=== PATIENT | female | born 2000 | race Caucasian/White ===

== ENCOUNTER 2022-10-09 19:00 | Inpatient (IN) | payer SELFPAY ==
[2022-10-09] VITALS (26 sets, daily range): BP systolic 99–132; BP diastolic 60–85; PULSE 73–108; TEMP 36.8–37.1; O2SAT 75–100; BMI 35.0
[2022-10-09] MEDS: Lactated Ringers 1,000 ML 50 ML IV (19:50)
[2022-10-09] MEDS: 0.9% Normal Saline Single 100 ML IV.SOLN. INTRA-UTER (19:50)
--- NOTE | 2022-10-09 19:50 | PCM.HP.OB ---
HPI - General General Date of Admission: 10/09/22 HPI Narrative SANTOS FARMER, is a 21 F who presents at 39w6d for elective induction of labor. Maternal Data Information EMERALD Calculator Estimated Delivery Date Method Current WG Current Estimate 10/10/22 Manual 39w 6d NST FHR Rate Baby A Baseline: 125 Variability:: Moderate Accelerations:: 15 x 15 Decelerations:: None FHR Category:: Category I Uterine Activity:: None ROS Constitutional Constitutional: Reports systems reviewed and no addt'l complaints, except as documented; Denies headache(s) Eyes Eyes: Denies acute decrease in peripheral vision, blurry vision or change in vision ENT HEENT: Reports systems reviewed and no addt'l complaints, except as documented Cardiovascular Cardiovascular: Denies chest pain or dizziness Respiratory/Chest Respiratory/Chest: Denies cough, dyspnea, dyspnea on exertion, shortness of breath at rest or shortness of breath with exertion Gastrointestinal Gastrointestinal: Denies abdominal pain, diarrhea, nausea or vomiting Genitourinary Genitourinary: Denies abdominal discomfort Musculoskeletal Musculoskeletal: Denies limited range of motion Integumentary Integumentary: Reports systems reviewed and no addt'l complaints, except as documented Neurologic Neurologic: Reports systems reviewed and no addt'l complaints, except as documented Psychiatric Psychiatric: Reports systems reviewed and no addt'l complaints, except as documented Endocrine Endocrinology: Reports systems reviewed and no addt'l complaints, except as documented Hematologic/Lymphatic Hematologic/Lymphatic: Reports systems reviewed and no addt'l complaints, except as documented Allergic/Immunologic Allergic/Immunologic: Reports systems reviewed and no addt'l complaints, except as documented Vital Signs Vital Signs Vital Signs: Weight Weight: 210 lb 8 oz Body Mass Index (BMI) 35.0 Physical Exam Const alert and oriented x3 General Appearance: cooperative Orientation / Consciousness: awake, oriented to person, oriented to place and oriented to time Exam Limitations: no limitations HEENT normocephalic Head and Scalp: normal to inspection, normocephalic and atraumatic Face and Sinus: normal facial exam Eyes General Eye: normal appearance of both eyes Neck full ROM Chest Chest: symmetrical chest wall rise Resp normal respiratory effort and normal air movement Auscultation: clear to auscultation bilaterally Cardio regular rate, regular rhythm, S1 normal heart sound, S2 normal heart sound, no murmurs, no rub, no gallops and no clicks GI normal to inspection, nondistended, normoactive bowel sounds and non-tender appearance of the vagina normal Bladder / Kidney Exam: no CVA tenderness Manual OB Exam: estimated gestational size appropriate, presentation cephalic, dilated 2cm, effaced 50%, station -3 and other tapia catheter inserted through cervix without difficulty. 30ml NS instilled. AROM during insertion. Patient tolerated well. Amniotic Fluid: meconium-stained Back/Spine normal ROM Extremity normal to inspection and full ROM Skin no rashes or lesions noted Neuro oriented x3, CN's II-XII intact bilaterally and moves all extremities Sensorium / Orientation: awake, alert and oriented to person Motor Exam: clonus absent Deep Tendon Reflexes: Rt Patellar (L4): 2+ and Lt Patellar (L4): 2+ Labs Labs Labs: No Data to Display RPR negative GC/CT negative Rubella immune HBsAG negative HIV negative HepC negative A positive Assessment & Plan (1) Encounter for induction of labor: (2) Elective induction of labor planned: (3) Obesity affecting : PLAN: Plan 1) Admit to labor and delivery 2) Routine labs 3) GBS negative 4) Continuous EFM 5) Tapia with PO cytotec for cervical ripening and then pitocin per protocol 6) Epidural for pain management upon request 7) collaborative physician and notified of patient status and induction of labor.
[2022-10-09 20:07] LABS: Absolute Neutrophil Count 8.4 X10^3/uL (2.0-7.7); Basophil# 0.03 X10^3/uL; Basophil% 0.3 % (0-1); Eosinophil# 0.03 X10^3/uL; Eosinophils% 0.3 % (0-5); Hematocrit 36.9 % (37-47); Hemoglobin 12.2 g/dL (12.0-15.0); Lymphocyte % 18.5 % (19-41); Mean Corp Hgb Conc 33.1 g/dL (32-36); Mean Corpuscular Hgb 27.8 pg (27.0-32.0); Mean Corpuscular Volume 84.1 fL (81-99); Mean Platelet Vol. 11.5 fl (6.2-12.0); Monocyte# 0.74 X10^3/uL; Monocyte% 6.5 % (0-10); NRBC Flagged by Analyzer 0 % (0-5); Neutrophil # 8.42 X10^3/uL (2.7-7.7); Platelet Count 182 K/mm3 (150-450); RBC Distribution Width CV 13.5 % (11.6-14.6); RBC Distribution Width SD 41.4 fl (35.1-43.9); Red Blood Count 4.39 M/mm3 (4.2-5.4); White Blood Count 11.4 K/mm3 (4.4-11.0)
[2022-10-09 20:48] LABS: Syphilis Antibodies Non-reactive
[2022-10-09] MEDS: Oxytocin 15 Units/NS 250ml 15 UNITS/250 ML IV.SOLN 2 UNITS IV (22:07)
[2022-10-09] MEDS: LACTATED RINGERS 500 ML 999 ML IV ×2 (22:10→23:51)
[2022-10-09] MEDS: fentaNYL-bupivacaine (epidural) 100 ML BAG EPIDURAL (23:06)
[2022-10-10] VITALS (203 sets, daily range): BP systolic 87–132; BP diastolic 47–77; PULSE 68–180; RESP 14–16; TEMP 36.1–37.2; O2SAT 82–100
[2022-10-10] MEDS: Lactated Ringers 1,000 ML 50 ML IV (00:38)
[2022-10-10] MEDS: Cefazolin 2 GM in 0.9% Normal Saline 100 ML IV (03:42)
--- NOTE | 2022-10-10 04:48 | EX.PCM.OBRPT ---
Maternal Data Information EMERALD Calculator Estimated Delivery Date Method Current WG Current Estimate 10/10/22 Manual 40w 0d Final EMERALD: 10/10/22 Gestational age: 40 weeks Details Operative Information Date of Procedure: 10/10/22 Pre-Operative Diagnosis: (1) Inability of fetus to tolerate labor Post-Operative Diagnosis: Same Indications for : Nonreassuring Status Indications Narrative: The patient was taken to the operating room where epidural anesthesia was dosed & found to be adequate. She was prepped and draped in the dorsal supine position with a leftward tilt. A Pfannenstiel skin incision was made approximately 2 cm above the symphysis pubis and carried through to the underlying fascia with the scalpel. The fascia was incised incised in the midline and extended laterally with the Carlos scissors. The rectus muscles were in the midline and the peritoneum was entered carefully and bluntly. The peritoneal incision was stretched and the bladder blade was inserted. Vesicouterine peritoneum was tented up, incised & then bladder flap created gently. The uterine incision was made in a low transverse fashion with the scalpel and extended superiorly and inferiorly with blunt dissection. The 's head was brought to the incision in the flexed position and delivered without difficulty. The head was gently guided to allow delivery of the anterior and posterior shoulders. The body then delivered with fundal pressure in the standard fashion. The 3VC cord was clamped and cut in slightly delayed fashion. The infant was handed off to the waiting pediatric dental hygienist. The placenta was delivered with fundal massage and gentle traction in the standard fashion. The uterus was exteriorized and cleared of clots and debris. The uterine incision was closed with #1 Vicryl suture in a running locked fashion. Monocryl suture was used in an imbricating fashion. The incision was examined and was found to be hemostatic. The uterus was returned to the abdominal cavity. After irrigating Cadence was placed over the uterine incision as some areas were denuded (but hemostatic). The rectus muscle was examined and any bleeding was Bovie cauterized. The fascia was closed with PDS suture in a running standard fashion. The subcutaneous tissue was examining and any bleeding was Bovie cauterized. The subcutaneous tissue was reapproximated with interrupted sutures. The skin was closed in a subcuticular fashion by the MANAGEMENT INTERN while I was present in the labor & delivery unit. The remainder of the procedure was performed by me with assistance. All sponge, lap, and needle counts were correct. The patient was taken to her room for recovery in a stable condition. Classification: JEREMIAH Procedure Type: low transverse compensation analyst #1: Angie Davila Type of Anesthesia: Epidural Antibiotic Given: Ancef 2 grams IV x1 and Zithromax 500 mg/5 mL X1 Drain: Day to straight drain Estimated Blood Loss: 700 Fluids Replaced: 1500 Procedure Start Time: 04:07 Procedure Stop Time: 04:48 Findings Description of Procedure: Normal maternal uterus and adnexa Presentation: Positive for Vertex Amniotic Membrane Rupture Type: Artificial Amniotic Fluid Description: Clear Placental Delivery Description: Expressed Placenta Disposition: [facility] Specimen(s) Sent to Pathology: none Cord Vessel Description: 3 Vessels Cord Entanglement: None A Gender: Male (weight = 7-2, Jose Eduardo) (1 minute): 8 (5 minute): 9 Delayed Cord Clamping: Yes Complications Complications: None
[2022-10-10] MEDS: Oxytocin 15 Units/NS 250ml 15 UNITS/250 ML IV.SOLN 83 UNITS IV (05:35)
[2022-10-10] MEDS: Acetaminophen 500 MG Tablet 1000 MG PO ×4 (06:56→23:20)
[2022-10-10] MEDS: Ketorolac 30 MG/ML Syringe IV ×4 (06:56→23:20)
[2022-10-10] MEDS: Lactated Ringers 1,000 ML 100 ML IV (10:00)
--- NOTE | 2022-10-10 15:37 | NURSING ---
Pt head of cytogenetics MIRIAM. Pt requesting to rest and legs were numb for an extended period of time.
[2022-10-10] MEDS: 0.9% Saline Lock 10 ML Syringe IV (17:41)
[2022-10-10] MEDS: Enoxaparin 40 MG/0.4 ML Syringe SC (17:48)
[2022-10-11] VITALS (54 sets, daily range): BP systolic 110–122; BP diastolic 73–78; PULSE 71–110; RESP 15–18; TEMP 36.2–36.7; O2SAT 97–100
[2022-10-11 04:44] LABS: Hematocrit 33.7 % (37-47); Hemoglobin 11.3 g/dL (12.0-15.0); Mean Corp Hgb Conc 33.5 g/dL (32-36); Mean Corpuscular Hgb 28.3 pg (27.0-32.0); Mean Corpuscular Volume 84.5 fL (81-99); Mean Platelet Vol. 10.9 fl (6.2-12.0); Platelet Count 143 K/mm3 (150-450); RBC Distribution Width CV 14.1 % (11.6-14.6); RBC Distribution Width SD 43.2 fl (35.1-43.9); Red Blood Count 3.99 M/mm3 (4.2-5.4); White Blood Count 15.2 K/mm3 (4.4-11.0)
[2022-10-11] MEDS: Ibuprofen 600 MG Tablet PO ×2 (06:02→15:24)
[2022-10-11] MEDS: Acetaminophen 500 MG Tablet 1000 MG PO ×2 (06:02→15:23)
--- NOTE | 2022-10-11 08:11 | PCM.PN.OB ---
Subjective Subjective Doing well. Pain is well controlled. She is ambulating and voiding without difficulty. Tolerating regular diet without nausea or vomiting. Lochia is normal. She denies lightheadedness or dizziness. Denies leg pain. Desires to go home. Objective Data Objective Data Vital Signs: Vital Signs Temp Pulse Resp BP Pulse Ox O2 Del Method 97.1 F L 95 15 110/73 99 Room Air 10/11/22 04:00 10/11/22 04:00 10/11/22 04:00 10/11/22 04:00 10/11/22 04:00 10/11/22 04:00 Oxygen Delivery Method Room Air Weight: 210 lb 8 oz Body Mass Index (BMI) 35.0 Intake & Output: Intake and Output for Last 24 Hours 10/09/22 10/10/22 10/11/22 23:59 23:59 23:59 Intake Total 500 / 500 2925.83 / 2925.83 Output Total 3100 / 3100 Balance 500 / 500 -174.17 / -174.17 Lab / Micro Data Result Diagrams: 10/11/22 04:30 Labs: Laboratory Results - last 24 hr 10/11/22 04:30: WBC 15.2 H, RBC 3.99 L, Hgb 11.3 L, Hct 33.7 L, MCV 84.5, MCH 28.3, MCHC 33.5, RDW Std Deviation 43.2, RDW Coeff of Emmanuel 14.1, Plt Count 143 L, MPV 10.9 Physical Exam Const alert and no apparent distress General Appearance: comfortable HEENT normocephalic Assessment & Plan (1) Delivery by section: PLAN: Patient is postoperative day 1 from a section. She is doing well and desires discharge home. Meeting milestones for discharge. Discharge instructions were reviewed with the patient and she will follow-up in the office in 1 to 2 weeks for an incision check.
--- NOTE | 2022-10-11 08:15 | DCINST_ITS ---
Discharge Instructions Diet Discharge Diet: No restrictions Activity Discharge Activity: May Not Drive and May Shower May resume sexual activity in: 6 weeks Weight Bearing Status: Weight bearing as tolerated Lifting Restrictions: Nothing heavier than baby Dressing / Incision Call your doctor if your incision/area has: Continuous Slow Oozing, Sudden Incre ased Bleeding, Increased Pain/ Swelling, Increased Redness, Foul Smelling Discharge and Swelling at the incision site Call your doctor if you observe: Fever of 101 or Higher, Coldness, Increased Pain, Numbness or Tingling, Change in Color, Inability to urinate, Inability to have a bowel movement, Using more than 1 pad per hour, Shortness of breath, Dizziness, Fainting spells, Swelling in the ankles, Chest pain, Increased palpitations (irregular heartbeat), Calf discomfort and Uncontrolled pain Suture Line Care: Avoid Pulling/Pushing and Avoid Pinching/Bending Remove Dressing in: 2 days Cleanse incision/area with: Soap & Water Follow Up Care When: 1-2 weeks for incision check Test Results: Test results from this visit will be discussed in further detail at your follow- up appointment, if applicable. Discharge Plan Admission Admit Date/Time: 10/09/22 19:00 Primary Reason for Your Visit: delivery Attending Provider: Jeannine Green Primary Care Provider: Morenita Mayer Primary Instructions Patient Instructions: Section Dc Discharge Orders/Prescriptions Prescriptions: New oxycodone-acetaminophen [Percocet] 5-325 mg tablet 1 tab PO Q6H PRN (Reason: pain) 7 Days Qty: 10 0RF ibuprofen 600 mg tablet 600 mg PO Q6H PRN (Reason: pain) Qty: 30 0RF docusate sodium [Colace] 100 mg capsule 100 mg PO BID Qty: 30 0RF Referrals / Follow Up: Care PhysicianMorenita Primary [Primary Care Provider] - Disposition Disposition (needs filled in before D/C Order can be placed): Home, Self Care
--- NOTE | 2022-10-11 08:22 | PCM.PN.OB ---
Subjective Subjective Patient is doing well. Her pain is well controlled. She is ambulating and voiding without difficulty. Lochia is normal. She is tolerating regular diet without nausea or vomiting. She denies lightheadedness or dizziness. She denies leg pain. She desires to go home today. Objective Data Objective Data Vital Signs: Vital Signs Temp Pulse Resp BP Pulse Ox O2 Del Method 97.1 F L 95 15 110/73 99 Room Air 10/11/22 04:00 10/11/22 04:00 10/11/22 04:00 10/11/22 04:00 10/11/22 04:00 10/11/22 04:00 Oxygen Delivery Method Room Air Weight: 210 lb 8 oz Body Mass Index (BMI) 35.0 Intake & Output: Intake and Output for Last 24 Hours 10/09/22 10/10/22 10/11/22 23:59 23:59 23:59 Intake Total 500 / 500 2925.83 / 2925.83 Output Total 3100 / 3100 Balance 500 / 500 -174.17 / -174.17 Lab / Micro Data Result Diagrams: 10/11/22 04:30 Labs: Laboratory Results - last 24 hr 10/11/22 04:30: WBC 15.2 H, RBC 3.99 L, Hgb 11.3 L, Hct 33.7 L, MCV 84.5, MCH 28.3, MCHC 33.5, RDW Std Deviation 43.2, RDW Coeff of Emmanuel 14.1, Plt Count 143 L, MPV 10.9 Physical Exam Const alert and no apparent distress General Appearance: comfortable HEENT normocephalic Resp normal respiratory effort GI soft to palpation and non-distended GI Narrative: ATTP, dressing intact Extremity Extremity Narrative: Trace edema LE bilaterally Assessment & Plan (1) Delivery by section: PLAN: Patient is status post section. She desires to go home today and is meeting milestones for discharge. Discharge instructions reviewed and she will follow-up in the office in 1 to 2 weeks for an incision check.
[2022-10-11] MEDS: Senna/Docusate Sodium 1 Tablet PO (15:24)
[2022-10-11] MEDS: Enoxaparin 40 MG/0.4 ML Syringe SC (15:25)
== END 2022-10-11 16:50 | disposition home or self-care (01) | DRG 788 ==
PROVIDERS: Advanced Practice Midwife; Admitting Provider Obstetrics & Gynecology; Visit Provider Obstetrics & Gynecology
DX: O76 Abnormality in fetal heart rate and rhythm complicating labor and delivery (principal); E66.8 Other obesity; Z37.0 Single live birth; O99.214 Obesity complicating childbirth; Z3A.39 39 weeks gestation of pregnancy
CPT/HCPCS: 59025; 59050; 85025; 85027; 86780; 86850; 86900; 86901; 99221; 99252; J7120; A4216; G0378; G0463; J2405

== ENCOUNTER 2024-03-20 22:01 | Outpatient (CLI) | payer OTHER, SELFPAY ==
[2024-03-20 22:16] VITALS: BP 119/78; PULSE 107; RESP 16; TEMP 36.3; O2SAT 97
[2024-03-20 22:30] VITALS: BMI 34.2
== END 2024-03-20 22:50 | disposition home or self-care (01) ==
LOC: WPOUT 22:03 → WP 22:05
PROVIDERS: Visit Provider Obstetrics & Gynecology
DX: O47.1 False labor at or after 37 completed weeks of gestation (principal); Z3A.38 38 weeks gestation of pregnancy
CPT/HCPCS: 59025; 59050; 99221; G0378

== ENCOUNTER 2024-03-22 05:12 | Inpatient (IN) | payer OTHER, SELFPAY ==
[2024-03-22] VITALS (20 sets, daily range): BP systolic 102–127; BP diastolic 60–75; PULSE 60–84; RESP 12–16; TEMP 36–36.9; O2SAT 96–100; BMI 34.0
[2024-03-22] MEDS: Lactated Ringers 1,000 ML 999 ML IV (05:30)
[2024-03-22 05:52] LABS: Absolute Lymphocyte Count 1.43 X10^3/uL (0.83-4.51); Absolute Neutrophil Count 7.2 X10^3/uL (2.0-7.7); Basophil# 0.02 X10^3/uL; Basophil% 0.2 % (0-1); Eosinophil# 0.07 X10^3/uL; Eosinophils% 0.7 % (0-5); Hemoglobin 12.1 g/dL (12.0-15.0); Lymphocyte # 1.43 X10^3/ul (0.83-4.51); Mean Corp Hgb Conc 32.7 g/dL (32-36); Mean Corpuscular Hgb 27.3 pg (27.0-32.0); Mean Corpuscular Volume 83.5 fL (81-99); Monocyte# 0.79 X10^3/uL; Monocyte% 8.3 % (0-10); NRBC Flagged by Analyzer 0 % (0-5); Neutrophil # 7.19 X10^3/uL (2.7-7.7); Neutrophil % 75.4 % (47-70); Platelet Count 161 K/mm3 (150-450); RBC Distribution Width SD 42.9 fl (35.1-43.9); Red Blood Count 4.43 M/mm3 (4.2-5.4); White Blood Count 9.5 K/mm3 (4.4-11.0)
[2024-03-22] MEDS: Acetaminophen 500 MG Tablet 1000 MG PO ×3 (06:36→20:01)
[2024-03-22] MEDS: Lactated Ringers 1,000 ML 150 ML IV (06:37)
[2024-03-22] MEDS: Sodium Citrate/Citric Acid 30 ML UDC PO (07:18)
[2024-03-22] MEDS: Cefazolin 2 GM in Syringe IV (07:40)
--- NOTE | 2024-03-22 07:40 | PCM.HP.OB ---
HPI - General General Date of Admission: 03/22/24 Date of Service: 03/22/24 Chief Complaint: contractions HPI Narrative SANTOS FARMER, is a 23 F who presents complaining contractions since then all night. She denies any gross vaginal bleeding. She has had good movement. has been uncomplicated to date. She was found to have cervical change in the contractions were moderately strong and uncomfortable. Decision was made to proceed with section for early labor. Maternal Data Information EMERALD Calculator Estimated Delivery Date Method Current WG Current Estimate 03/31/24 Manual 38w 5d Final EMERALD: 03/31/24 Gestational age: 39 5/7 PFSH PFSH Home Medications ?Medication ?Instructions ?Recorded ?Last Taken ?Type vit no.95-ferrous 1 tab PO DAILY preg 03/20/24 03/21/24 14:00 History fumarate 28 mg-folic acid 800 mcg tablet () Allergy/AdvReac Type Severity Reaction Status Date / Time Seasonal Allergies: Uncoded Allergy Intermediate Other Verified 03/22/24 04:49 Surgical History (Updated 03/22/24 @ 07:[address] Jenny Lopez MD) Delivery by section History of surgery Social History Smoking Status: Never smoker History Elective abortions Hx Para 1 Spontaneous abortions Hx # Term Pregnancies Ectopic pregnancies Hx # Pregnancies Multiple births # of living children ROS Constitutional Constitutional: Denies fatigue, fever(s) or malaise Eyes Eyes: Denies change in vision ENT HEENT: Denies dizziness or headache(s) Cardiovascular Cardiovascular: Denies chest pain, dyspnea or lightheadedness Respiratory/Chest Respiratory/Chest: Denies cough or dyspnea Gastrointestinal Gastrointestinal: Denies change in bowel habits Genitourinary Genitourinary: Denies burning urination or genital lesions Integumentary Integumentary: Denies rash Neurologic Neurologic: Denies confusion, dizziness, headache(s), numbness or weakness Vital Signs Vital Signs Vital Signs: 03/22/24 04:52 03/22/24 04:52 03/22/24 04:52 Temperature Temperature Source Pulse Rate 83 79 Respiratory Rate Blood Pressure 116/75 Blood Pressure Mean BP Systolic 116 BP Diastolic 75 Blood Pressure Source Blood Pressure Position Blood Pressure Location Pulse Ox Oxygen Delivery Method 03/22/24 04:52 03/22/24 04:54 03/22/24 04:54 Temperature Temperature Source Temporal Pulse Rate Respiratory Rate 16 Blood Pressure Blood Pressure Mean BP Systolic BP Diastolic Blood Pressure Source Blood Pressure Position Blood Pressure Location Pulse Ox 99 Oxygen Delivery Method 03/22/24 04:54 03/22/24 05:52 03/22/24 05:52 Temperature 97.8 F Temperature Source Pulse Rate 84 Respiratory Rate Blood Pressure Blood Pressure Mean BP Systolic BP Diastolic Blood Pressure Source Blood Pressure Position Blood Pressure Location Pulse Ox 99 Oxygen Delivery Method 03/22/24 05:53 03/22/24 05:53 03/22/24 05:53 Temperature 98.4 F Temperature Source Temporal Pulse Rate 81 81 Respiratory Rate 16 Blood Pressure 127/72 H 127/72 H Blood Pressure Mean 90 BP Systolic 127 BP Diastolic 72 Blood Pressure Source Monitor Blood Pressure Position Semi-Fowlers Blood Pressure Location Right Arm Pulse Ox 99 Oxygen Delivery Method Room Air Weight Weight: 92.896 kg Body Mass Index (BMI) 34.0 Labs Labs Labs: Blood Type A POSITIVE Antibody Screen NEGATIVE Hct 37.0 % (37-47) Hgb 12.1 g/dL (12.0-15.0) Syphilis Total Ab Non-reactive Hep Bs Antigen Non-Reactive (Nonreactive) Hepatitis C Antibody Non-Reactive (Nonreactive) HIV 1&2 Antibody Non-Reactive (Nonreactive) Assessment & Plan (1) 38 weeks gestation of : PLAN: Risk benefits alternatives to repeat section were discussed with the patient, her questions were answered to her satisfaction she desires to proceed. Consent was signed. (2) Spontaneous onset of labor: (3) Previous delivery affecting :
[2024-03-22 07:50] LABS: Syphilis Antibodies Non-reactive
--- NOTE | 2024-03-22 08:11 | OP.PCM_ITS ---
Assessment & Plan (1) delivery delivered: (2) Single live : Maternal Data Information EMERALD Calculator Estimated Delivery Date Method Current WG Current Estimate 03/31/24 Manual 38w 5d Final EMERALD: 03/31/24 Gestational age: 38 5/7 Operative Report (OB) Cecarean Details Procedure Type: low transverse Surgeon: Jenny Lopez Date of Procedure: 03/22/24 Procedure Start Time: 07:53 Procedure Stop Time: 08:15 Time of Delivery: 07:56 Pre-Operative Diagnosis: Repeat Elective Post-Operative Diagnosis: Same as Pre-operative diagnosis Classification: JEREMIAH Type of Anesthesia: Spinal Special Medications: duramorph Antibiotic Given: Ancef 2 grams IV x1 Drain: Day to straight drain Estimated Blood Loss: 600 Fluids Replaced: 1000 Findings Description of surgery: The patient was taken to the operating room. She was prepped and draped in the dorsal supine position with a leftward tilt. A Pfannenstiel skin incision was made approximately 2 cm above the symphysis pubis and carried through to underlying layer fascia with the scalpel. The fascia was incised incised in the midline and extended laterally with the Carlos scissors. The fascia was dissected off the rectus muscles with blunt and sharp dissection. The rectus muscles were in the midline and the peritoneum was entered bluntly. The peritoneal incision was stretched and the bladder blade was placed. The uterine incision was made in a low transverse fashion with the scalpel and extended superiorly and inferiorly with blunt dissection. The amniotic membranes were ruptured bluntly and clear amniotic fluid returned. The infant's head was brought to the incision in the flexed position and delivered without difficulty. The remainder of the infant was delivered with gentle traction and fundal pressure in the standard fashion. The mouth and nares were bulb suctioned. The cord was clamped and cut as the was stimulated. Cord clamping was delayed approximately 30 seconds. The was handed off to the waiting nursing staff. The placenta was delivered with fundal massage and gentle traction in the standard fashion. The uterus was exteriorized and cleared of all clots and debris. . The uterine incision was closed with #1 Vicryl in a running locked fashion. The incision was examined and was found to be hemostatic. The uterus was placed back into the peritoneal cavity and hemostasis was again confirmed. The rectus muscles were examined and any bleeding was Bovie cauter ized. The parietal peritoneum and rectus muscles were closed en bloc with an 0 Vicryl running suture. The surgical teams outer gloves were then changed. The rectus fascia was examined and any bleeding was Bovie cauterized and the rectus fascia was closed with #1 PDS suture in a running standard fashion. The subcutaneous tissue was examining and any bleeding was Bovie cauterized. The subcutaneous tissue was reapproximated with 3-0 Vicryl suture. The skin was closed in a subcuticular fashion by the SKIVER HEEL TAP with me present in the labor and delivery suite. I performed the remainder of the procedure with assistance. All sponge, lap, and needle counts were correct. The patient was taken to her room for recovery in a stable condition. Surgical findings: Normal uterus tubes and ovaries, normal placenta with three-vessel cord. Specimen collected: No A gender: Male (6 pounds 14 ounces, walker) (1 minute): 9 (5 minute): 9 Delayed Cord Clamping: Yes Community Relations Representative business process specialist: Yes Curtains [employer] Dra[employer] Salesperson: Isiah Cruz Tasks completed by psychiatric assistant: Closing and Retracting Additional food trades assistants?: No Complications Complications: No
[2024-03-22] MEDS: Methylergonovine 0.2 MG/ML Ampul IM (08:25)
[2024-03-22] MEDS: Oxytocin 15 Units/NS 250ml 15 UNITS/250 ML IV.SOLN 83 UNITS IV (09:10)
[2024-03-22] MEDS: Ketorolac 30 MG/ML Syringe IV ×3 (09:19→21:25)
[2024-03-22] MEDS: 0.9% Saline Lock 10 ML Syringe IV ×2 (15:09→21:25)
[2024-03-22] MEDS: Enoxaparin 40 MG/0.4 ML Syringe SC (20:01)
[2024-03-23] VITALS: BP 96/54; PULSE 55; RESP 16; TEMP 36.6; O2SAT 98
[2024-03-23] MEDS: Acetaminophen 500 MG Tablet 1000 MG PO ×3 (02:11→15:02)
[2024-03-23] MEDS: Ketorolac 30 MG/ML Syringe IV (03:27)
[2024-03-23] MEDS: 0.9% Saline Lock 10 ML Syringe IV (03:27)
[2024-03-23 03:42] VITALS: BP 94/58; PULSE 57; RESP 16; TEMP 36.8; O2SAT 99
[2024-03-23 06:12] LABS: Hematocrit 31.7 % (37-47); Hemoglobin 10.4 g/dL (12.0-15.0); Mean Corp Hgb Conc 32.8 g/dL (32-36); Mean Corpuscular Hgb 27.7 pg (27.0-32.0); Mean Corpuscular Volume 84.3 fL (81-99); Mean Platelet Vol. 11.2 fl (6.2-12.0); Platelet Count 135 K/mm3 (150-450); RBC Distribution Width CV 14.1 % (11.6-14.6); RBC Distribution Width SD 42.8 fl (35.1-43.9); Red Blood Count 3.76 M/mm3 (4.2-5.4); White Blood Count 11.9 K/mm3 (4.4-11.0)
[2024-03-23 08:06] VITALS: BP 101/53; PULSE 70; RESP 16; TEMP 36.2; O2SAT 99
--- NOTE | 2024-03-23 08:24 | PCM.PROGNOTE ---
Subjective Subjective patient seen at bedside, doing well. Patient reports good pain control. lochia mild. tolerating regular diet, ambulating Objective Data Objective Data Vital Signs: Vital Signs Temp Pulse Resp BP Pulse Ox O2 Del Method 97.1 F L 70 16 101/53 L 99 Room Air 03/23/24 08:06 03/23/24 08:06 03/23/24 08:06 03/23/24 08:06 03/23/24 08:06 03/23/24 08:06 Oxygen Delivery Method Room Air Weight: 92.896 kg Body Mass Index (BMI) 34.0 Intake & Output: Intake and Output for Last 24 Hours 03/21/24 03/22/24 03/23/24 23:59 23:59 23:59 Intake Total 3102.5 / 3102.5 Output Total 2550 / 2950 650 / 650 Balance 552.5 / 152.5 -650 / -650 Lab / Micro Data 03/23/24 06:05 Labs: Laboratory Results - last 24 hr 03/23/24 06:05: WBC 11.9 H, RBC 3.76 L, Hgb 10.4 L, Hct 31.7 L, MCV 84.3, MCH 27.7, MCHC 32.8, RDW Std Deviation 42.8, RDW Coeff of Emmanuel 14.1, Plt Count 135 L, MPV 11.2 Physical Exam Narrative fundus firm , dressing dry and intact Const alert and oriented x3 General Appearance: cooperative HEENT normocephalic Neck General: normal visual inspection GI soft to palpation and non-distended GI Narrative: Fundus firm Extremity normal to inspection and no calf tenderness Skin no rashes or lesions noted Neuro oriented x3 and CN's II-XII intact bilaterally Psych mental status grossly normal Assessment & Plan Assessment/Plan (1) delivery delivered: (2) Single live : (3) Previous delivery affecting : PLAN: Plan POD#1 , Doing well Routine care pain mgmt monitor VS ambulation likely dc home today per patient request time spent with patient face to face on day of discharge was <30min
--- NOTE | 2024-03-23 08:30 | DCINST_ITS ---
Discharge Instructions Diet Discharge Diet: No restrictions Activity May resume sexual activity in: 6-8 weeks Lifting Restrictions: 25 Dressing / Incision Call your doctor if your incision/area has: Continuous Slow Oozing, Sudden Increased Bleeding, Increased Pain/ Swelling, Increased Redness, Foul Smelling Discharge and Swelling at the incision site Call your doctor if you observe: Fever of 101 or Higher, Inability to urinate, Using more than 1 pad per hour and Uncontrolled pain Additional Dressing/Incision Instructions:: remove dressing at 7 days post op- if it becomes saturated prior to that time you may remove it. Let soap and water run over incision sites and dab dry. keep incision clean and dry. Follow Up Care Please Follow Up With: Calista Vaca MD When: 1-2 weeks post of incision check and again at 6 weeks post . [phone] Test Results: Test results from this visit will be discussed in further detail at your follow- up appointment, if applicable. Discharge Plan Admission Admit Date/Time: 03/22/24 05:12 Attending Provider: Jenny Lopez Primary Care Provider: Care Physician,Morenita Primary Discharge Orders/Prescriptions Prescriptions: New sennosides-docusate sodium [Stimulant Laxative Plus] 8.6-50 mg Tablet 1 - 2 tab PO DAILY PRN PRN (Reason: Constipation) Qty: 0 0RF acetaminophen 500 mg Tablet 1,000 mg PO Q6H Qty: 0 0RF ibuprofen 600 mg Tablet 600 mg PO Q6H Qty: 0 0RF simethicone 80 mg Tablet,Chewable 80 mg PO PCHS PRN (Reason: Indigestion/Stomach pain) Qty: 0 0RF Continued PNV cmb#95-ferrous fumarate-FA [] 28 mg iron- 800 mcg tablet 1 tab PO DAILY Referrals / Follow Up: Care Physician,No Primary [Primary Care Provider] - Disposition Disposition (needs filled in before D/C Order can be placed): Home, Self Care
--- NOTE | 2024-03-23 08:35 | PCM.DC.BLA ---
Discharge Summary Date of Admission: 03/22/24 Date of Discharge: 03/23/24 Summary: pt admitted at 38.5 weeks, found to be in early labor, making cervical change with contractions. pt has h/o previous c/s. pt underwent repeat cs by Dr. bubba lund without complication. Pt discharged home on POD#1 in stable condition. Meaningful Use Info Meaningful Use Meaningful Use Diagnoses (Choose all that apply): None applicable Ischemic Stroke Statin Dosing Therapy Reference: STATIN DOSE THERAPY REFERENCE: * Patients > 75 years receive moderate or high dose statin therapy. * Patients 75 years or YOUNGER should receive HIGH intensity statin dose unless contraindicated. You will be required to document reason for non-treatment if statin daily dose does not meet guidelines. HIGH DOSE STATIN THERAPY DAILY Atorvastatin > than or = to 40 mg Rosuvastatin > than or = to 20 mg Amlodipine + Atorvastatin > than or = to 2.5/40 mg Ezetimibe + Simvastatin 10/80 mg Simvastatin 80mg Discharge Plan Admission Admit Date/Time: 03/22/24 05:12 Attending Provider: Bubba Lund Primary Care Provider: Care Physician,No Primary Discharge Orders/Prescriptions Prescriptions: New sennosides-docusate sodium [Stimulant Laxative Plus] 8.6-50 mg Tablet 1 - 2 tab PO DAILY PRN PRN (Reason: Constipation) Qty: 0 0RF acetaminophen 500 mg Tablet 1,000 mg PO Q6H Qty: 0 0RF ibuprofen 600 mg Tablet 600 mg PO Q6H Qty: 0 0RF simethicone 80 mg Tablet,Chewable 80 mg PO PCHS PRN (Reason: Indigestion/Stomach pain) Qty: 0 0RF Continued PNV cmb#[id number]-ferrous fumarate-FA [] 28 mg iron- 800 mcg tablet 1 tab PO DAILY Referrals / Follow Up: Care Physician,No Primary [Primary Care Provider] - Disposition Disposition (needs filled in before D/C Order can be placed): Home, Self Care
[2024-03-23] MEDS: Ibuprofen 600 MG Tablet PO (10:36)
[2024-03-23 14:30] VITALS: BP 106/70; PULSE 73; RESP 16; TEMP 36.9; O2SAT 99
[2024-03-23] MEDS: Senna/Docusate Sodium 1 Tablet PO (15:02)
== END 2024-03-23 16:00 | disposition home or self-care (01) | DRG 788 ==
LOC: WPOUT 05:16 → WP 05:16
PROVIDERS: Admitting Provider Obstetrics & Gynecology; Referring Provider Obstetrics & Gynecology; Visit Provider Obstetrics & Gynecology
DX: O34.219 Maternal care for unspecified type scar from previous cesarean delivery (principal); O75.82 Onset (spontaneous) of labor after 37 completed weeks of gestation but before 39 completed weeks gestation, with delivery by (planned) cesarean section; Z37.0 Single live birth; Z3A.38 38 weeks gestation of pregnancy
CPT/HCPCS: 59025; 59050; 85025; 85027; 86780; 86850; 86900; 86901; 99221; J7120; A4216; G0378; J2405